=== PATIENT | female | born 1985 | race Asian ===

== ENCOUNTER 2022-02-09 12:37 | Day surgery (SDC) | payer BC ==
[2022-02-08 09:29] VITALS: BMI 27.1
[2022-02-09] MEDS ORDERED: Sodium Bicarbonate 2.5 MEQ/5 ML VIAL ONE (12:43)
[2022-02-09] MEDS ORDERED: Lidocaine 1% PF 5 ML VIAL ONE (12:43)
[2022-02-09 13:10] VITALS: BP 107/77; TEMP 98.2
== END 2022-02-09 13:55 | disposition home or self-care (01) ==
LOC: ULT 12:37
PROVIDERS: ATTEND Otolaryngology Plastic Surgery within the Head & Neck
PROC: 0G9G3ZX Drainage of Left Thyroid Gland Lobe, Percutaneous Approach, Diagnostic (ICD-10-PCS; principal; 2022-02-09)
DX: E04.1 Nontoxic single thyroid nodule (principal); R73.03 Prediabetes; Z79.84 Long term (current) use of oral hypoglycemic drugs
CPT/HCPCS: 10005; 88173; 88305